=== PATIENT | male | born 1965 | race African-American/Black ===

== ENCOUNTER 2018-06-24 18:31 | Inpatient (IN) | payer OTHER ==
[2018-06-24 21:01] VITALS: BMI 23.6
--- NOTE | 2018-06-24 21:31 | HP ---
CIWA Score Nausea/Vomitin-No Nausea/No Vomiting Muscle Tremors: 2 Anxiety: 2 Agitation: 3 Paroxysmal Sweats: 2 Orientation: 0-Oriented Tacttile Disturbances: 1-Very Mild Itch/Numbness Auditory Disturbances: 0-None Visual Disturbances: 2-Mild Sensitivity Headache: 0-None Present CIWA-Ar Total Score: 12 - Admission Criteria OASAS Guidelines: Admission for Medically Managed Detox: Requires at least one of the followin. CIWA greater than 12 2. Seizures within the past 24 hours 3. Delirium tremens within the past 24 hours 4. Hallucinations within the past 24 hours 5. Acute intervention needed for co occurring medical disorder 6. Acute intervention needed for co occurring psychiatric disorder 7. Severe withdrawal that cannot be handled at a lower level of care (continued vomiting, continued diarrhea, abnormal vital signs) requiring intravenous medication and/or fluids 8. Patient presents the following: CIWA greater than 12, Acute intervention needed for co-occurring med or psych disorder Admission Criteria Met: Admission criteria met Admission ROS S - HPI Chief Complaint: " alcohol detox " Allergies/Adverse Reactions: Allergies Allergy/AdvReac Type Severity Reaction Status Date / Time No Known Allergies Allergy Verified 06/24/18 20:45 History of Present Illness: Patient is a 52 yo male with hx of nicotine, alcohol and cocaine dependence is here seeking detox. PMHX: HIV, Hep C, HTN Psych: anxiety Denies hx of seizures or blackouts Last detox [facility] June 2017 Longest period of sobriety six months Exam Limitations: No Limitations - Review of Systems Constitutional: Chills, Fever, Unintentional Wgt. Loss (10 lbs) EENT: reports: Nose Congestion Respiratory: reports: No Symptoms reported Cardiac: reports: No Symptoms Reported GI: reports: Poor Fluid Intake, Abdominal cramping : reports: No Symptoms Reported Musculoskeletal: reports: Back Pain Integumentary: reports: No Symptoms Reported Neuro: reports: No Symptoms reported Endocrine: reports: No Symptoms Reported Hematology: reports: See HPI Psychiatric: reports: Orientated x3, Agitated Other Systems: Reviewed and Negative Patient History - Patient Medical History Hx Anemia: No Hx Asthma: No Hx Chronic Obstructive Pulmonary Disease (COPD): No Hx Cancer: No Hx Cardiac Disorders: No Hx Congestive Heart Failure: No Hx Hypertension: Yes (on meds ) Hx Hypercholesterolemia: No Hx Pacemaker: No HX Cerebrovascular Accident: No Hx Seizures: No Hx Dementia: No Hx Diabetes: No Hx Gastrointestinal Disorders: Yes (GERD ) Hx Liver Disease: Yes (Hep B ) Hx Genitourinary Disorders: No Hx Sexually Transmitted Disorders: Yes (gonorrhea ) Hx Renal Disease (ESRD): No Hx Thyroid Disease: No Hx Human Immunodeficiency Virus (HIV): Yes Hx Hepatitis C: No Hx Depression: No Hx Suicide Attempt: Yes (x1 in 1990) Hx Bipolar Disorder: No - Patient Surgical History Past Surgical History: No - PPD History Previous Implant?: No Documented Results: Negative w/o proof PPD to be Administered?: Yes - Smoking Cessation Smoking history: Current every day smoker Have you smoked in the past 12 months: Yes Aproximately how many cigarettes per day: 10 Hx Chewing Tobacco Use: No Initiated information on smoking cessation: Yes 'Breaking Loose' booklet given: 06/24/18 - Substance & Tx. History Hx Alcohol Use: Yes Hx Substance Use: Yes Substance Use Type: Alcohol, Cocaine Hx Substance Use Treatment: Yes (Last detox [facility] June 2017) - Substances abused Cocaine Substance route: Smoking Frequency: Daily Amount used: 100 dollars Age of first use: 18 Date of last use: 06/24/18 Alcohol Substance route: Oral Frequency: Daily Amount used: 2 beers Age of first use: 16 Date of last use: 06/24/18 Family Disease History - Family Disease History Family History: Denies Admission Physical Exam [facility] - Vital Signs Vital Signs: Vital Signs - 24 hr 06/24/18 20:44 Temperature 97 F L Pulse Rate 68 Respiratory 14 Rate Blood Pressure 137/75 - Physical General Appearance: Yes: Appropriately Dressed, Thin, Irritable, Sweating, Anxious HEENTM: Yes: EOMI, Hearing grossly Normal, Normal ENT Inspection, Normocephalic , Normal Voice, FRANCISCO J, Pharynx Normal, Tm's normal Respiratory: Yes: Chest Non-Tender, Lungs Clear, Normal Breath Sounds, No Respiratory Distress, No Accessory Muscle Use Neck: Yes: Within Normal Limits Breast: Yes: Breast Exam Deferred Cardiology: Yes: Regular Rhythm, Regular Rate Abdominal: Yes: Normal Bowel Sounds, Non Tender, Flat, Soft Genitourinary: Yes: Within Normal Limits Back: Yes: Normal Inspection Musculoskeletal: Yes: full range of Motion, Gait Steady, Pelvis Stable Extremities: Yes: Normal Capillary Refill, Normal Inspection, Normal Range of Motion, Non-Tender Neurological: Yes: terminal operations manager II-XII NML intact, Fully Oriented, Alert, Motor Strength 5/5, Depressed Affect Integumentary: Yes: Normal Color, Warm Lymphatic: Yes: Within Normal Limits - Diagnostic (1) Alcohol dependence with uncomplicated withdrawal Current Visit: Yes Status: Acute (2) Nicotine dependence Current Visit: Yes Status: Acute Qualifiers: Nicotine product type: cigarettes (3) Human immunodeficiency virus (HIV) disease Current Visit: Yes Status: Chronic (4) Essential (primary) hypertension Current Visit: Yes Status: Chronic Cleared for Admission S - Detox or Rehab [facility] Level of Care: Medically Managed Detox Regimen/Protocol: Librium Breathalyzer - Breathalyzer Breathalyzer: 0 Urine Drug Screen - Test Device Lot number: [id number] Expiration date: 02/13/11 - Control Is test valid?: Yes - Results Drug screen NEGATIVE: Yes Urine drug screen results: DONG-Cocaine Inpatient Rehab Admission - Rehab Decision to Admit Inpatient rehab admission?: No
[2018-06-24] MEDS ORDERED: BISMUTH SUBSALICYLATE 262 MG/15 ML BTL PO PRN (21:33)
[2018-06-24] MEDS ORDERED: chlordiazePOXIDE HCL 10 MG CAPSULE PO PRN (21:33)
[2018-06-24] MEDS ORDERED: MELATONIN 5 MG TABLETS PO PRN (21:33)
[2018-06-24] MEDS ORDERED: NICOTINE POLACRILEX 2 MG GUM BUC PRN (21:33)
[2018-06-24] MEDS ORDERED: MAGNESIUM CITRATE 300 ML BOTTLE PO PRN (21:33)
[2018-06-24] MEDS ORDERED: hydrOXYzine PAMOATE 25 MG CAPSULE (FP) PO PRN (21:33)
[2018-06-24] MEDS ORDERED: MENTHOL/PHENOL 1 EACH UD MM PRN (21:33)
[2018-06-24] MEDS ORDERED: ACETAMINOPHEN 325 MG TABLET (FP) PO PRN ×2 (21:33)
[2018-06-24] MEDS ORDERED: MAGNESIUM HYDROX 2400MG/30ML ORAL SUSPENSION 30 ML CUP PO PRN (21:33)
[2018-06-24] MEDS ORDERED: MAG HYDROX/AL HYDROX/SIMETH 30 ML UNIT-DOSE CUP PO PRN (21:33)
[2018-06-24] MEDS ORDERED: IBUPROFEN 400 MG TABLET (FP) PO PRN (21:33)
[2018-06-24] MEDS ORDERED: METHOCARBAMOL 500 MG TABLET PO PRN (21:33)
[2018-06-24 23:38] LABS: EPI CELLS 0.5 /HPF (0-5/HPF); URINE APPEARANCE CLEAR; URINE BACTERIA 7.8 /hpf (NEGATIVE); URINE BILIRUBIN NEGATIVE (NEGATIVE); URINE CASTS 1 /hpf (0-8); URINE COLOR YELLOW; URINE GLUCOSE (UA) NEGATIVE (NEGATIVE); URINE KETONE TRACE (NEGATIVE); URINE LEUK ESTERASE TRACE (NEGATIVE); URINE NITRITE NEGATIVE (NEGATIVE); URINE PROTEIN NEGATIVE (NEGATIVE); URINE RBC 0 /hpf (0-4); URINE WBC 6 /hpf (0-5)
[2018-06-24] MEDS: chlordiazePOXIDE HCL 25 MG CAPSULE PO SCH (23:58)
[2018-06-24] MEDS: THIAMINE HCL 100 MG TABLET (FP) PO SCH (23:58)
[2018-06-25] MEDS: chlordiazePOXIDE HCL 25 MG CAPSULE PO SCH ×2 (05:19→15:34)
[2018-06-25 10:13] LABS: HEMATOCRIT 42.8 % (35.4-49); HEMOGLOBIN 14.6 GM/dL (11.7-16.9); MCH 36.8 pg (25.7-33.7); MCHC 34.1 g/dl (32.0-35.9); MEAN PLT VOLUME 8.9 fl (7.5-11.1); PLATELET COUNT 168 K/MM3 (134-434); RBC 3.96 M/mm3 (4.00-5.60); RDW 13.1 % (11.9-15.9); WHITE BLOOD COUNT 2.8 K/mm3 (4.0-10.0)
[2018-06-25 10:27] LABS: ALK PHOS 72 U/L (45-117); ANION GAP 4 MMOL/L (8-16); BILIRUBIN,TOTAL 0.5 mg/dL (0.2-1); BLOOD UREA NITROGEN 11 mg/dL (7-18); CALCIUM 8.9 mg/dL (8.5-10.1); CHLORIDE 110 mmol/L (98-107); CO2 28 mmol/L (21-32); GLUCOSE,RANDOM 123 mg/dL (74-106); POTASSIUM 3.9 mmol/L (3.5-5.1); SGOT/AST 24 U/L (15-37); SGPT/ALT 29 U/L (13-61); SODIUM 141 mmol/L (136-145); TOT PROT 6.8 g/dl (6.4-8.2)
[2018-06-25] MEDS: PRENATAL VITAMINS W/ FOLIC ACID TABLET (FP) PO SCH (10:38)
[2018-06-25] MEDS: NICOTINE 14 MG/24 HOURS TOPICAL PATCH TD SCH (10:38)
--- NOTE | 2018-06-25 11:38 | PN ---
S CIWA - CIWA Score Nausea/Vomitin-Mild Nausea/No Vomiting Muscle Tremors: 2 Anxiety: 2 Agitation: 2 Paroxysmal Sweats: 1-Minimal Palms Moist Orientation: 0-Oriented Tacttile Disturbances: 0-None Auditory Disturbances: 0-None Visual Disturbances: 0-None Headache: 0-None Present CIWA-Ar Total Score: 8 BHS Progress Note (SOAP) Subjective: patient is taking truvada tivicay prezista and ritonovir patient does not have his medication with him upon admission last filled encourage the patient to bring in his own ART medication Objective: 06/25/18 11:48 Vital Signs Temperature 97.2 F L 06/25/18 09:40 Pulse Rate 98 H 06/25/18 09:40 Respiratory Rate 18 06/25/18 09:40 Blood Pressure 128/70 06/25/18 09:40 O2 Sat by Pulse Oximetry (%) Laboratory Last Values WBC 2.8 K/mm3 (4.0-10.0) L 06/25/18 07:00 RBC 3.96 M/mm3 (4.00-5.60) L 06/25/18 07:00 Hgb 14.6 GM/dL (11.7-16.9) 06/25/18 07:00 Hct 42.8 % (35.4-49) 06/25/18 07:00 MCV 108.0 fl (80-96) H 06/25/18 07:00 MCH 36.8 pg (25.7-33.7) H 06/25/18 07:00 MCHC 34.1 g/dl (32.0-35.9) 06/25/18 07:00 RDW 13.1 % (11.9-15.9) 06/25/18 07:00 Plt Count 168 K/MM3 (134-434) 06/25/18 07:00 MPV 8.9 fl (7.5-11.1) 06/25/18 07:00 Sodium 141 mmol/L (136-145) 06/25/18 07:00 Potassium 3.9 mmol/L (3.5-5.1) 06/25/18 07:00 Chloride 110 mmol/L (98-107) H 06/25/18 07:00 Carbon Dioxide 28 mmol/L (21-32) 06/25/18 07:00 Anion Gap 4 MMOL/L (8-16) L 06/25/18 07:00 BUN 11 mg/dL (7-18) 06/25/18 07:00 Creatinine 1.0 mg/dL (0.55-1.3) 06/25/18 07:00 Creat Clearance w eGFR 79.09 (>60) 06/25/18 07:00 Random Glucose 123 mg/dL (74-106) H 06/25/18 07:00 Calcium 8.9 mg/dL (8.5-10.1) 06/25/18 07:00 Total Bilirubin 0.5 mg/dL (0.2-1) 06/25/18 07:00 AST 24 U/L (15-37) 06/25/18 07:00 ALT 29 U/L (13-61) 06/25/18 07:00 Alkaline Phosphatase 72 U/L (45-117) 06/25/18 07:00 Total Protein 6.8 g/dl (6.4-8.2) 06/25/18 07:00 Albumin 3.0 g/dl (3.4-5.0) L 06/25/18 07:00 Urine Color Yellow 06/24/18 23:20 Urine Appearance Clear 06/24/18 23:20 Urine pH 6.0 (5.0-8.0) 06/24/18 23:20 Ur Specific [place] 1.018 (1.010-1.035) 06/24/18 23:20 Urine Protein Negative (NEGATIVE) 06/24/18 23:20 Urine Glucose (UA) Negative (NEGATIVE) 06/24/18 23:20 Urine Ketones Trace (NEGATIVE) H 06/24/18 23:20 Urine Blood Negative (NEGATIVE) 06/24/18 23:20 Urine Nitrite Negative (NEGATIVE) 06/24/18 23:20 Urine Bilirubin Negative (NEGATIVE) 06/24/18 23:20 Urine Urobilinogen 1.0 mg/dL (0.2-1.0) 06/24/18 23:20 Ur Leukocyte Esterase Trace (NEGATIVE) 06/24/18 23:20 Urine WBC (Auto) 6 /hpf (0-5) 06/24/18 23:20 Urine RBC (Auto) 0 /hpf (0-4) 06/24/18 23:20 Urine Casts (Auto) 1 /hpf (0-8) 06/24/18 23:20 U Epithel Cells (Auto) 0.5 /HPF (0-5/HPF) 06/24/18 23:20 Urine Bacteria (Auto) 7.8 /hpf (NEGATIVE) 06/24/18 23:20 RPR Titer Nonreactive (NONREACTIVE) 06/25/18 07:00 lab noted Assessment: 06/25/18 11:48 withdrawal sx Plan: continue detox
--- NOTE | 2018-06-25 16:39 | EKG ---
Test Reason : Blood Pressure : / mmHG Vent. Rate : 062 BPM Atrial Rate : 062 BPM P-R Int : 200 ms QRS Dur : 082 ms QT Int : 444 ms P-R-T Axes : 070 082 051 degrees QTc Int : 450 ms NORMAL SINUS RHYTHM NORMAL ECG NO PREVIOUS ECGS AVAILABLE Confirmed by JEAN DEWARDS, HIRAL ([id number]) on 06/25/2018 4:38:48 PM Referred By: Confirmed By:HIRAL PENA MD
[2018-06-25] MEDS: chlordiazePOXIDE 5 MG CAPSULE PO SCH (22:47)
[2018-06-25] MEDS: THIAMINE HCL 100 MG TABLET (FP) PO SCH (22:47)
[2018-06-26] MEDS: chlordiazePOXIDE 5 MG CAPSULE PO SCH ×2 (06:22→13:14)
[2018-06-26] MEDS: PRENATAL VITAMINS W/ FOLIC ACID TABLET (FP) PO SCH (10:20)
[2018-06-26] MEDS: NICOTINE 14 MG/24 HOURS TOPICAL PATCH TD SCH (10:20)
--- NOTE | 2018-06-26 17:39 | PN ---
S CIWA - CIWA Score Nausea/Vomitin-No Nausea/No Vomiting Muscle Tremors: 2 Anxiety: 2 Agitation: 0-Normal Activity Paroxysmal Sweats: No Perspiration Orientation: 0-Oriented Tacttile Disturbances: 2-Mild Itch/Numbness/Burn Auditory Disturbances: 1-Very Mild Visual Disturbances: 1-Very Mild Sensitivity Headache: 0-None Present CIWA-Ar Total Score: 8 BHS Progress Note (SOAP) Subjective: Anxious, Tremors. Objective: PATIENT A & O X 3, OBSERVED AMBULATING ON UNIT. IN NO ACUTE DISTRESS. 06/26/18 17:37 Vital Signs Temperature 97.7 F 06/26/18 13:25 Pulse Rate 67 06/26/18 13:25 Respiratory Rate 18 06/26/18 13:25 Blood Pressure 149/77 06/26/18 13:25 O2 Sat by Pulse Oximetry (%) Laboratory Tests 06/24/18 06/25/18 06/25/18 23:20 07:00 07:00 WBC 2.8 L RBC 3.96 L Hgb 14.6 Hct 42.8 MCV 108.0 H MCH 36.8 H MCHC 34.1 RDW 13.1 Plt Count 168 MPV 8.9 Sodium 141 Potassium 3.9 Chloride 110 H Carbon Dioxide 28 Anion Gap 4 L BUN 11 Creatinine 1.0 Creat Clearance w eGFR 79.09 Random Glucose 123 H Calcium 8.9 Total Bilirubin 0.5 AST 24 ALT 29 Alkaline Phosphatase 72 Total Protein 6.8 Albumin 3.0 L Urine Color Yellow Urine Appearance Clear Urine pH 6.0 Ur Specific [place] 1.018 Urine Protein Negative Urine Glucose (UA) Negative Urine Ketones Trace H Urine Blood Negative Urine Nitrite Negative Urine Bilirubin Negative Urine Urobilinogen 1.0 Ur Leukocyte Esterase Trace Urine WBC (Auto) 6 Urine RBC (Auto) 0 Urine Casts (Auto) 1 U Epithel Cells (Auto) 0.5 Urine Bacteria (Auto) 7.8 RPR Titer 06/25/18 07:00 WBC RBC Hgb Hct MCV MCH MCHC RDW Plt Count MPV Sodium Potassium Chloride Carbon Dioxide Anion Gap BUN Creatinine Creat Clearance w eGFR Random Glucose Calcium Total Bilirubin AST ALT Alkaline Phosphatase Total Protein Albumin Urine Color Urine Appearance Urine pH Ur Specific [place] Urine Protein Urine Glucose (UA) Urine Ketones Urine Blood Urine Nitrite Urine Bilirubin Urine Urobilinogen Ur Leukocyte Esterase Urine WBC (Auto) Urine RBC (Auto) Urine Casts (Auto) U Epithel Cells (Auto) Urine Bacteria (Auto) RPR Titer Nonreactive LABS NOTED. Assessment: 06/26/18 17:38 WITHDRAWAL SYMPTOMS. Plan: CONTINUE DETOX. INCREASE DAILY PO FLUID INTAKE.
[2018-06-26] MEDS ORDERED: chlordiazePOXIDE HCL 10 MG CAPSULE PO PRN (21:00)
[2018-06-26] MEDS: THIAMINE HCL 100 MG TABLET (FP) PO SCH (22:32)
[2018-06-26] MEDS: chlordiazePOXIDE HCL 10 MG CAPSULE PO SCH (22:33)
[2018-06-27] MEDS: chlordiazePOXIDE HCL 10 MG CAPSULE PO SCH (05:57)
[2018-06-27 09:34] VITALS: BP 125/78; PULSE 65; TEMP 96.8
[2018-06-27] MEDS: NICOTINE 14 MG/24 HOURS TOPICAL PATCH TD SCH (09:41)
[2018-06-27] MEDS: PRENATAL VITAMINS W/ FOLIC ACID TABLET (FP) PO SCH (09:41)
--- NOTE | 2018-06-27 16:07 | DS ---
[facility] Detox Discharge Summary Admission Date: 06/24/18 Discharge Date: 06/27/18 - History Present History: Alcohol Dependence Additional Comments: NO BEDS ARE CURRENTLY AVAILABLE AT [facility] ([place], [place]) , PATIENT WILL RETURN HOME FOR WEEKEND AND WILL LIKELY APPLY FOR ADMISSION TO REHAB ON 06/29/2018. PATIENT WAS DISCHARGED FROM DETOX UNIT IN STABLE MEDICAL CONDITION. Pertinent Past History: HTN, H.I.V., Nicotine Dependence, G.E.R.D, History Of Hep B, Leukopenia. - Physical Exam Results Vital Signs: Vital Signs Temperature 96.8 F L 06/27/18 09:34 Pulse Rate 65 06/27/18 09:34 Respiratory Rate 20 06/27/18 09:34 Blood Pressure 125/78 06/27/18 09:34 O2 Sat by Pulse Oximetry (%) Pertinent Admission Physical Exam Findings: WITHDRAWAL SYMPTOMS. Laboratory Tests 06/24/18 06/25/18 06/25/18 23:20 07:00 07:00 WBC 2.8 L RBC 3.96 L Hgb 14.6 Hct 42.8 MCV 108.0 H MCH 36.8 H MCHC 34.1 RDW 13.1 Plt Count 168 MPV 8.9 Sodium 141 Potassium 3.9 Chloride 110 H Carbon Dioxide 28 Anion Gap 4 L BUN 11 Creatinine 1.0 Creat Clearance w eGFR 79.09 Random Glucose 123 H Calcium 8.9 Total Bilirubin 0.5 AST 24 ALT 29 Alkaline Phosphatase 72 Total Protein 6.8 Albumin 3.0 L Urine Color Yellow Urine Appearance Clear Urine pH 6.0 Ur Specific [place] 1.018 Urine Protein Negative Urine Glucose (UA) Negative Urine Ketones Trace H Urine Blood Negative Urine Nitrite Negative Urine Bilirubin Negative Urine Urobilinogen 1.0 Ur Leukocyte Esterase Trace Urine WBC (Auto) 6 Urine RBC (Auto) 0 Urine Casts (Auto) 1 U Epithel Cells (Auto) 0.5 Urine Bacteria (Auto) 7.8 RPR Titer 06/25/18 07:00 WBC RBC Hgb Hct MCV MCH MCHC RDW Plt Count MPV Sodium Potassium Chloride Carbon Dioxide Anion Gap BUN Creatinine Creat Clearance w eGFR Random Glucose Calcium Total Bilirubin AST ALT Alkaline Phosphatase Total Protein Albumin Urine Color Urine Appearance Urine pH Ur Specific [place] Urine Protein Urine Glucose (UA) Urine Ketones Urine Blood Urine Nitrite Urine Bilirubin Urine Urobilinogen Ur Leukocyte Esterase Urine WBC (Auto) Urine RBC (Auto) Urine Casts (Auto) U Epithel Cells (Auto) Urine Bacteria (Auto) RPR Titer Nonreactive LABS NOTED. - Treatment Hospital Course: Detox Protocol Followed, Detoxed Safely, Responded well, Discharged Condition Good, Rehab Referral Accepted Patient has Accepted a Rehab Referral to: [facility] ([facility] IN[facility].Jason) ; PT. WILL APPLY AT LATER DATE. - Medication Discharge Medications: Ambulatory Orders Dolutegravir Sodium [Tivicay] 50 mg PO DAILY 06/24/18 Emtricitabine/Tenofovir [Truvada -] 1 tablet PO DAILY 06/24/18 Norvir - 100 mg PO DAILY 06/24/18 Ritonavir [Norvir -] 100 mg PO DAILY 06/24/18 - Diagnosis (1) Alcohol dependence with uncomplicated withdrawal Status: Acute (2) Leukopenia Status: Acute Qualifiers: Leukopenia type: unspecified Qualified Code(s): D72.819 - Decreased white blood cell count, unspecified (3) Nicotine dependence Status: Acute Qualifiers: Nicotine product type: cigarettes Substance use status: uncomplicated Qualified Code(s): F17.210 - Nicotine dependence, cigarettes, uncomplicated (4) Essential (primary) hypertension Status: Chronic (5) Human immunodeficiency virus (HIV) disease Status: Chronic - AMA Did Patient Leave Against Medical Advice: No
== END 2018-06-27 09:42 | disposition home or self-care (01) | DRG 774 ==
LOC: YASAS 18:31 → Y3N 22:29
PROVIDERS: ADMIT Surgery; ATTEND Surgery
PROC: HZ2ZZZZ Detoxification Services for Substance Abuse Treatment (ICD-10-PCS; principal; 2018-06-24)
DX: F10.230 Alcohol dependence with withdrawal, uncomplicated (principal); F14.20 Cocaine dependence, uncomplicated; F17.210 Nicotine dependence, cigarettes, uncomplicated; I10 Essential (primary) hypertension; D72.819 Decreased white blood cell count, unspecified; Z21 Asymptomatic human immunodeficiency virus [HIV] infection status; B18.2 Chronic viral hepatitis C; K21.9 Gastro-esophageal reflux disease without esophagitis; Z87.438 Personal history of other diseases of male genital organs
CPT/HCPCS: 36415; 80053; 81003; 85027; 86593; 93005; 93010

== ENCOUNTER 2020-12-20 13:39 | Inpatient (IN) | payer OTHER ==
[2020-12-20 14:16] VITALS: BMI 21.8
[2020-12-20] MEDS ORDERED: ACETAMINOPHEN 325 MG TABLET (FP) PO PRN ×2 (17:58)
[2020-12-20] MEDS ORDERED: MENTHOL/PHENOL 1 EACH UD MM PRN (17:58)
[2020-12-20] MEDS ORDERED: MAGNESIUM HYDROX 2400MG/30ML ORAL SUSPENSION 30 ML CUP PO PRN (17:58)
[2020-12-20] MEDS ORDERED: NICOTINE 10 MG CARTRIDGE (INHALER) IH PRN (17:58)
[2020-12-20] MEDS ORDERED: MAGNESIUM CITRATE 300 ML BOTTLE PO PRN (17:58)
[2020-12-20] MEDS ORDERED: MAG HYDROX/AL HYDROX/SIMETH 30 ML UNIT-DOSE CUP PO PRN (17:58)
[2020-12-20] MEDS ORDERED: BISMUTH SUBSALICYLATE 524 MG/30 ML PO PRN (17:58)
[2020-12-20] MEDS ORDERED: METHOCARBAMOL 500 MG TABLET PO PRN (17:58)
[2020-12-20] MEDS ORDERED: IBUPROFEN 400 MG TABLET (FP) PO PRN (17:58)
[2020-12-20] MEDS ORDERED: ONDANSETRON *ODT* 4 MG TABLET SL PRN (17:58)
[2020-12-20] MEDS: NICOTINE 14 MG/24 HOURS TOPICAL PATCH TD SCH (19:35)
[2020-12-20] MEDS: hydrOXYzine PAMOATE 25 MG CAPSULE (FP) PO SCH ×2 (19:36→22:48)
[2020-12-20] MEDS: MELATONIN 5 MG TABLETS PO SCH (22:48)
[2020-12-20] MEDS: THIAMINE HCL 100 MG TABLET (FP) PO SCH (22:48)
[2020-12-21] MEDS: hydrOXYzine PAMOATE 25 MG CAPSULE (FP) PO SCH ×3 (06:34→14:37)
[2020-12-21] MEDS ORDERED: diazePAM 5 MG TABLET PO PRN (09:26)
[2020-12-21] MEDS: diazePAM 5 MG TABLET PO SCH ×3 (10:26→23:21)
[2020-12-21] MEDS: NICOTINE 14 MG/24 HOURS TOPICAL PATCH TD SCH (10:26)
[2020-12-21] MEDS: DOLUTEGRAVIR SODIUM 50 MG TABLET (NON-FORMULARY) PO SCH (14:30)
[2020-12-21] MEDS: RITONAVIR 100 MG TABLET PO SCH (14:30)
[2020-12-21] MEDS: EMTRICITABINE 200MG/TENOFOVIR 300MG PO SCH (14:31)
[2020-12-21] MEDS ORDERED: hydrOXYzine PAMOATE 25 MG CAPSULE (FP) PO PRN (15:50)
[2020-12-21] MEDS: THIAMINE HCL 100 MG TABLET (FP) PO SCH (23:21)
[2020-12-21] MEDS: MELATONIN 5 MG TABLETS PO SCH (23:22)
[2020-12-22] MEDS: diazePAM 5 MG TABLET PO SCH ×4 (07:52→22:26)
[2020-12-22] MEDS: EMTRICITABINE 200MG/TENOFOVIR 300MG PO SCH ×2 (08:09→18:35)
[2020-12-22] MEDS: DOLUTEGRAVIR SODIUM 50 MG TABLET (NON-FORMULARY) PO SCH ×3 (08:09→18:36)
[2020-12-22] MEDS: RITONAVIR 100 MG TABLET PO SCH ×2 (08:09→18:35)
[2020-12-22] MEDS: NICOTINE 14 MG/24 HOURS TOPICAL PATCH TD SCH (10:32)
[2020-12-22] MEDS: DARUNAVIR ETHANOLATE 800 MG TAB PO SCH (15:58)
[2020-12-22] MEDS: THIAMINE HCL 100 MG TABLET (FP) PO SCH (22:25)
[2020-12-22] MEDS: MELATONIN 5 MG TABLETS PO SCH (22:25)
[2020-12-23] MEDS ORDERED: diazePAM 5 MG TABLET PO SCH (06:00)
[2020-12-23 09:48] VITALS: BP 149/88; PULSE 63; TEMP 97.3
[2020-12-23] MEDS: DOLUTEGRAVIR SODIUM 50 MG TABLET (NON-FORMULARY) PO SCH (11:51)
[2020-12-23] MEDS: DARUNAVIR ETHANOLATE 800 MG TAB PO SCH (11:51)
[2020-12-23] MEDS: EMTRICITABINE 200MG/TENOFOVIR 300MG PO SCH (11:51)
[2020-12-23] MEDS: RITONAVIR 100 MG TABLET PO SCH (11:51)
[2020-12-23] MEDS: NICOTINE 14 MG/24 HOURS TOPICAL PATCH TD SCH (11:51)
[2020-12-24] MEDS ORDERED: diazePAM 5 MG TABLET PO SCH (06:00)
[2020-12-25] MEDS ORDERED: diazePAM 5 MG TABLET PO ONE (06:00)
== END 2020-12-23 09:52 | disposition home or self-care (01) | DRG 774 ==
LOC: YASAS 13:39 → UNDOADMIN 17:03 → Y3N 17:03
PROVIDERS: ADMIT Allergy & Immunology; ATTEND Allergy & Immunology
PROC: HZ2ZZZZ Detoxification Services for Substance Abuse Treatment (ICD-10-PCS; principal; 2020-12-20)
DX: F10.230 Alcohol dependence with withdrawal, uncomplicated (principal); F14.20 Cocaine dependence, uncomplicated; F12.20 Cannabis dependence, uncomplicated; F17.210 Nicotine dependence, cigarettes, uncomplicated; Z21 Asymptomatic human immunodeficiency virus [HIV] infection status; B19.10 Unspecified viral hepatitis B without hepatic coma; I10 Essential (primary) hypertension; D57.3 Sickle-cell trait
CPT/HCPCS: C9803; U0003; U0005

== ENCOUNTER 2021-10-08 12:27 | Inpatient (IN) | payer OTHER ==
[2021-10-08 14:00] VITALS: BMI 20.2
[2021-10-08] MEDS ORDERED: ACETAMINOPHEN 325 MG TABLET (FP) PO PRN ×2 (17:38)
[2021-10-08] MEDS ORDERED: NICOTINE 10 MG CARTRIDGE (INHALER) IH PRN (17:38)
[2021-10-08] MEDS ORDERED: MAG HYDROX/AL HYDROX/SIMETH 30 ML UNIT-DOSE CUP PO PRN (17:38)
[2021-10-08] MEDS ORDERED: MAGNESIUM HYDROX 2400MG/30ML ORAL SUSPENSION 30 ML CUP PO PRN (17:38)
[2021-10-08] MEDS ORDERED: BENZOCAINE/MENTHOL (CHLORASEPTIC ) LOZENGE MM PRN (17:38)
[2021-10-08] MEDS ORDERED: ONDANSETRON *ODT* 4 MG TABLET SL PRN (17:38)
[2021-10-08] MEDS ORDERED: LOPERAMIDE HCL 2 MG CAPSULE PO PRN (17:38)
[2021-10-08] MEDS ORDERED: METHOCARBAMOL 500 MG TABLET PO PRN (17:38)
[2021-10-08] MEDS ORDERED: BISMUTH SUBSALICYLATE 524 MG/30 ML PO PRN (17:38)
[2021-10-08] MEDS ORDERED: DICYCLOMINE HCL 10 MG CAPSULE PO PRN (17:38)
[2021-10-08] MEDS ORDERED: MAGNESIUM CITRATE 300 ML BOTTLE PO PRN (17:38)
[2021-10-08] MEDS: hydrOXYzine PAMOATE 25 MG CAPSULE (FP) PO SCH ×2 (19:35→22:23)
[2021-10-08] MEDS: THIAMINE HCL 100 MG TABLET (FP) PO SCH (22:23)
[2021-10-08] MEDS: MELATONIN 5 MG TABLETS PO SCH (22:23)
[2021-10-09] MEDS: hydrOXYzine PAMOATE 25 MG CAPSULE (FP) PO SCH ×5 (06:08→22:41)
[2021-10-09] MEDS ORDERED: chlordiazePOXIDE HCL 25 MG CAPSULE PO PRN (10:14)
[2021-10-09] MEDS: PRENATAL VITAMINS W/ FOLIC ACID TABLET (FP) PO SCH (11:01)
[2021-10-09] MEDS: chlordiazePOXIDE HCL 25 MG CAPSULE PO SCH ×3 (11:02→22:41)
[2021-10-09 12:38] LABS: HEMATOCRIT 41.5 % (35.4-49); HEMOGLOBIN 14.2 GM/dL (11.7-16.9); MCH 35.3 pg (25.7-33.7); MCHC 34.2 g/dl (32.0-35.9); MEAN CELL VOLUME 103.3 fl (80-96); MEAN PLT VOLUME 8.2 fl (7.5-11.1); PLATELET COUNT 145 10^3/uL (134-434); RBC 4.02 M/mm3 (4.00-5.60); RDW 12.2 % (11.9-15.9); WHITE BLOOD COUNT 2.8 K/mm3 (4.0-10.0)
[2021-10-09 12:59] LABS: BILIRUBIN,TOTAL 0.6 mg/dL (0.2-1); CALCIUM 8.6 mg/dL (8.5-10.1); CREATININE 0.9 mg/dL (0.55-1.3); TOT PROT 6.6 g/dl (6.4-8.2)
[2021-10-09] MEDS: THIAMINE HCL 100 MG TABLET (FP) PO SCH (22:41)
[2021-10-09] MEDS: MELATONIN 5 MG TABLETS PO SCH (22:41)
[2021-10-10] MEDS: chlordiazePOXIDE HCL 25 MG CAPSULE PO SCH ×3 (05:45→18:24)
[2021-10-10] MEDS: hydrOXYzine PAMOATE 25 MG CAPSULE (FP) PO SCH ×4 (05:45→18:24)
[2021-10-10 07:02] VITALS: RESP 18
[2021-10-10] MEDS: PRENATAL VITAMINS W/ FOLIC ACID TABLET (FP) PO SCH (10:18)
[2021-10-10] MEDS ORDERED: BICTEGRAV/EMTRICIT/TENOFOV (BIKTARVY) 50-200-25 MG TABLET PO SCH (12:15)
[2021-10-10 21:20] VITALS: BP 138/84; PULSE 84; TEMP 97.7
[2021-10-11] MEDS ORDERED: chlordiazePOXIDE HCL 25 MG CAPSULE PO SCH (05:00)
[2021-10-11] MEDS ORDERED: LISINOPRIL 5 MG TABLET PO SCH (10:00)
[2021-10-12] MEDS ORDERED: chlordiazePOXIDE HCL 10 MG CAPSULE PO PRN
[2021-10-12] MEDS ORDERED: chlordiazePOXIDE HCL 10 MG CAPSULE PO SCH (05:00)
[2021-10-13] MEDS ORDERED: chlordiazePOXIDE HCL 10 MG CAPSULE PO SCH (05:00)
[2021-10-14] MEDS ORDERED: chlordiazePOXIDE HCL 10 MG CAPSULE PO ONE (05:00)
== END 2021-10-10 21:45 | disposition left against medical advice (07) | DRG 770 ==
LOC: YASAS 12:27 → UNDOADMIN 16:45 → Y6N 16:45
PROVIDERS: ADMIT Allergy & Immunology; ATTEND Surgery
PROC: HZ2ZZZZ Detoxification Services for Substance Abuse Treatment (ICD-10-PCS; principal; 2021-10-08)
DX: F10.230 Alcohol dependence with withdrawal, uncomplicated (principal); F14.20 Cocaine dependence, uncomplicated; F17.210 Nicotine dependence, cigarettes, uncomplicated; Z21 Asymptomatic human immunodeficiency virus [HIV] infection status; D72.819 Decreased white blood cell count, unspecified
CPT/HCPCS: 36415; 80053; 85027; 86780; C9803-CS; U0003; U0005

== ENCOUNTER 2022-05-30 11:15 | Inpatient (IN) | payer OTHER ==
[2022-05-30 12:44] VITALS: BMI 20.2
[2022-05-30] MEDS ORDERED: BENZONATATE 200 MG CAPSULE PO PRN (13:00)
[2022-05-30] MEDS ORDERED: IBUPROFEN 400 MG TABLET (FP) PO PRN (13:00)
[2022-05-30] MEDS ORDERED: guaiFENesin 600 MG TABLET.ER (FP) PO PRN (13:00)
[2022-05-30] MEDS ORDERED: NALOXONE HCL (KLOXXADO) 8 MG SPRAY NS PRN (13:00)
[2022-05-30] MEDS ORDERED: ONDANSETRON *ODT* 4 MG TABLET SL PRN (13:00)
[2022-05-30] MEDS ORDERED: BISMUTH SUBSALICYLATE 524 MG/30 ML PO PRN (13:00)
[2022-05-30] MEDS ORDERED: BENZOCAINE/MENTHOL (CHLORASEPTIC ) LOZENGE MM PRN (13:00)
[2022-05-30] MEDS ORDERED: ACETAMINOPHEN 325 MG TABLET (FP) PO PRN (13:00)
[2022-05-30] MEDS ORDERED: POLYETHYLENE GLYCOL (HEALTHYLAX) 3350 17 GM PACKET PO PRN (13:00)
[2022-05-30] MEDS ORDERED: NICOTINE 10 MG CARTRIDGE (INHALER) IH PRN (13:00)
[2022-05-30] MEDS ORDERED: METHOCARBAMOL 500 MG TABLET PO PRN (13:00)
[2022-05-30] MEDS ORDERED: LOPERAMIDE HCL 2 MG CAPSULE PO PRN (13:00)
[2022-05-30] MEDS ORDERED: MAG HYDROX/AL HYDROX/SIMETH 30 ML UNIT-DOSE CUP PO PRN (13:00)
[2022-05-30] MEDS ORDERED: NALOXONE HCL 0.4 MG/ML VIAL IM PRN (13:00)
[2022-05-30] MEDS ORDERED: IBUPROFEN 600 MG TABLET (FP) PO PRN (13:00)
[2022-05-30] MEDS ORDERED: hydrOXYzine PAMOATE 25 MG CAPSULE (FP) PO PRN (13:00)
[2022-05-30] MEDS ORDERED: MAGNESIUM HYDROX 2400MG/30ML ORAL SUSPENSION 30 ML CUP PO PRN (13:00)
[2022-05-30] MEDS ORDERED: LORazepam 1 MG TABLET PO PRN (13:00)
[2022-05-30] MEDS ORDERED: DICYCLOMINE HCL 10 MG CAPSULE PO PRN (13:00)
[2022-05-30] MEDS: NICOTINE 14 MG/24 HOURS TOPICAL PATCH TD SCH (14:07)
[2022-05-30] MEDS: PRENATAL VITAMINS W/ FOLIC ACID TABLET (FP) PO SCH (14:07)
[2022-05-30] MEDS: LORazepam 2 MG TABLET PO SCH ×2 (17:28→23:04)
[2022-05-30] MEDS ORDERED: MELATONIN 5 MG TABLETS PO SCH (22:00)
[2022-05-30] MEDS: THIAMINE HCL 100 MG TABLET (FP) PO SCH (22:03)
[2022-05-31] MEDS: LORazepam 2 MG TABLET PO SCH ×4 (05:59→22:54)
[2022-05-31 10:44] LABS: HEMATOCRIT 39.7 % (35.4-49); HEMOGLOBIN 13.5 GM/dL (11.7-16.9); MCH 36.9 pg (25.7-33.7); MEAN CELL VOLUME 108.4 fl (80-96); PLATELET COUNT 164 10^3/uL (134-434); RBC 3.66 M/mm3 (4.00-5.60); RDW 11.9 % (11.9-15.9); WHITE BLOOD COUNT 3.5 K/mm3 (4.0-10.0)
[2022-05-31] MEDS: NICOTINE 14 MG/24 HOURS TOPICAL PATCH TD SCH (10:51)
[2022-05-31] MEDS: PRENATAL VITAMINS W/ FOLIC ACID TABLET (FP) PO SCH (10:51)
[2022-05-31 11:02] LABS: ALBUMIN 2.5 g/dl (3.4-5.0); BLOOD UREA NITROGEN 7.2 mg/dL (7-18); CALCIUM 8.3 mg/dL (8.5-10.1)
[2022-05-31 11:05] LABS: CREATININE 0.8 mg/dL (0.55-1.3)
[2022-05-31 11:07] LABS: TOT PROT 6.1 g/dl (6.4-8.2)
[2022-05-31] MEDS ORDERED: MELATONIN 5 MG TABLETS PO PRN (12:39)
[2022-05-31] MEDS: THIAMINE HCL 100 MG TABLET (FP) PO SCH (22:54)
[2022-06-01] MEDS: LORazepam 1 MG TABLET PO SCH ×3 (05:53→17:30)
[2022-06-01] MEDS: NICOTINE 14 MG/24 HOURS TOPICAL PATCH TD SCH (10:21)
[2022-06-01] MEDS: PRENATAL VITAMINS W/ FOLIC ACID TABLET (FP) PO SCH (10:22)
[2022-06-01 17:52] VITALS: BP 132/76; PULSE 87; RESP 17; TEMP 98.6
[2022-06-02] MEDS ORDERED: LORazepam 0.5 MG TABLET PO PRN
[2022-06-02] MEDS ORDERED: LORazepam 0.5 MG TABLET PO SCH (05:00)
[2022-06-03] MEDS ORDERED: LORazepam 0.5 MG TABLET PO ONE (05:00)
== END 2022-06-01 18:52 | disposition left against medical advice (07) | DRG 770 ==
LOC: YASAS 11:15 → Y6N 13:19
PROVIDERS: ADMIT Allergy & Immunology; ATTEND Surgery
PROC: HZ2ZZZZ Detoxification Services for Substance Abuse Treatment (ICD-10-PCS; principal; 2022-05-30)
DX: F10.230 Alcohol dependence with withdrawal, uncomplicated (principal); F14.20 Cocaine dependence, uncomplicated; F17.210 Nicotine dependence, cigarettes, uncomplicated; B20 Human immunodeficiency virus [HIV] disease; Z79.899 Other long term (current) drug therapy; B19.10 Unspecified viral hepatitis B without hepatic coma; D57.3 Sickle-cell trait; I10 Essential (primary) hypertension; K74.60 Unspecified cirrhosis of liver
CPT/HCPCS: 36415; 80053; 85027; 86780; 87811; C9803-CS; U0003; U0005

== ENCOUNTER 2023-12-17 18:29 | Emergency (ER) | payer OTHER ==
[2023-12-17 19:07] VITALS: BP 115/59; PULSE 100; RESP 18; TEMP 98.7; BMI 22.3
[2023-12-17] MEDS ORDERED: SODIUM CHLORIDE 0.9% 500 ML INFUS.BAG IV ONE (19:31)
[2023-12-17] MEDS ORDERED: morphine CARPU-JECT 4 MG/1 ML DISP.SYRIN IVPUSH ONE (19:31)
== END 2023-12-17 20:26 | disposition left against medical advice (07) ==
LOC: JER 18:29
DX: R10.84 Generalized abdominal pain (principal); R11.2 Nausea with vomiting, unspecified; R19.7 Diarrhea, unspecified; R68.83 Chills (without fever)
CPT/HCPCS: 93005; 93010; 99283-25